=== PATIENT | female | born 2000 | race Caucasian/White ===

== ENCOUNTER → 2022-04-26 11:19 | Outpatient (CLI) | payer OTHER, SELFPAY ==
--- NOTE | 2022-04-26 11:21 | DI.RAD.S_ITS ---
PROCEDURE: XR TIBIA FUBULA RT 2V INDICATIONS: pain TECHNIQUE: 2 views of the tibia and fibula were acquired. COMPARISON: None. FINDINGS: Bones: No fractures or dislocations. No suspicious bony lesions. Soft tissues: No suspicious soft tissue calcifications or masses. IMPRESSION: No acute osseous abnormality. If symptoms persist, follow-up radiographs and/or CT may be helpful for further evaluation. Dictated by: Tim Allison M.D. on 04/26/2022 at 11:57 Approved by: Tim Allison M.D. on 04/26/2022 at 12:00
--- NOTE | 2022-04-26 11:21 | DI.RAD.S_ITS ---
PROCEDURE: XR ANKLE RT MIN 3V INDICATIONS: pain TECHNIQUE: 3 views of the ankle were acquired. COMPARISON: None. FINDINGS: Bones: No fractures or dislocations. Ankle mortise is normally aligned. No suspicious bony lesions. Soft tissues: Possible tibiotalar joint effusion. Achilles tendon appears normal. IMPRESSION: 1. No acute fracture visualized. If symptoms persist, follow-up radiographs or CT may be helpful for further evaluation. 2. Possible tibiotalar joint effusion. Dictated by: Tim Allison M.D. on 04/26/2022 at 11:54 Approved by: Tim Allison M.D. on 04/26/2022 at 11:57
== END ==
PROVIDERS: Referring Provider Nurse Practitioner Family; Visit Provider Nurse Practitioner Family
DX: M25.471 Effusion, right ankle (principal)
CPT/HCPCS: 73590; 73610